=== PATIENT | female | born 1965 | race Caucasian/White ===

== ENCOUNTER 2024-09-19 17:54 | Emergency (ER) | payer OTHER, SELFPAY ==
[2024-09-19 17:58] VITALS: BP 161/91
[2024-09-19 18:01] VITALS: BP 132/75
[2024-09-19 18:17] LABS: Hematocrit 39.7 % (37.0-47.0); Hemoglobin 13.7 g/dL (12.0-16.0); Mean Corp Hgb Conc. 34.5 g/dL (33.0-37.0); Mean Corpuscular Hgb 31.9 pg (27.0-31.0); Mean Corpuscular Volume 92.5 fL (81.0-99.0); Mean Platelet Volume 8.8 fL (7.4-10.4); Platelet Count 175 10^3/uL (130-400); Red Blood Cell Count 4.29 10^6/uL (4.20-5.40); Red Cell Dist. Width 12.6 % (11.5-14.5); White Blood Cell Count 2.7 10^3/uL (4.8-10.8)
[2024-09-19 18:25] LABS: ALT (SGPT) 32 U/L (0-35); AST (SGOT) 37 U/L (14-36); Albumin 4.9 g/dl (3.5-5.0); Alkaline Phosphatase 59 U/L (38-126); Blood Urea Nitrogen 12 mg/dl (7-17); Calcium 9.3 mg/dl (8.4-10.2); Carbon Dioxide 30 mmol/L (22-30); Chloride 96 mmol/L (98-107); Glucose 101 mg/dl (70-99); Potassium 4.8 mmol/L (3.5-5.1); Sodium 132 mmol/L (135-145); Total Bilirubin 0.9 mg/dl (0.2-1.3); Total Protein 7.3 g/dl (6.3-8.2); eGFR > 60.00
[2024-09-19 18:27] LABS: COVID-19 Antigen Negative (Negative)
[2024-09-19 19:13] LABS: % Eosinophils 1.5 % (0-6); % Lymphocytes 59.3 % (20.5-51.1); % Monocytes 11.9 % (1.7-9.3); % Neutrophils 27.3 % (42.2-75.2); Absolute Lymphocytes 1.6 10^3/uL (1.2-3.4); Absolute Monocytes 0.3 10^3/uL (0.1-0.6); Nucleated Red Blood Cells % 0 %
[2024-09-19 19:16] LABS: Absolute Neutrophils 0.7 10^3/uL (1.4-6.5)
--- NOTE | 2024-09-19 19:34 | ED.GENMED ---
History of Present Illness
General
Chief Complaint: Abnormal Lab Value
Source: patient and spouse
Exam Limitations: none
Time Seen by Provider: 09/19/24 19:07
Nursing documentation reviewed up to this point in time: agreed with
History of Present Illness
History of Present Illness:
59-year female referred from the urgent care due to low white blood cell count tells me for a 4 to 5 days she has had some backache fever chills thought she had the flu no nausea or vomiting no dysuria frequency no hematuria no hemoptysis, tested
negative for the flu and COVID had a low white blood cell count sent here for evaluation
Past History
Past History
ED Past Medical History: None
ED Past Surgical History: Gynecological and Orthopedic
Social History
Tobacco: Non-smoker
Alcohol: Occasional
Drug: None
Personal:
Living: with family
Employment: Employed
Review of Systems
Review of Systems
All Other Systems: Not applicable
Constitutional: Reports fever, fatigue and chills
EENT: Reports no symptoms
Respiratory: Reports no symptoms
Cardiac: Reports no symptoms
ABD/GI: Reports no symptoms
: Reports no symptoms
Musculoskeletal: Reports back pain
Skin: Reports no symptoms
Neurological: Reports weakness
Endocrine: Reports no symptoms
Hematologic/Lymphatic: Reports no symptoms; Denies bleeding or bruising
Psychiatric: Reports no symptoms
Phy Exam
Physical Exam
Physical Exam:
Physical Exam
General: no apparent distress, not acutely ill
Neck: No jaundice
Heart: s1/s2 regular rate and rhythm, no murmur. equal radial pulses.
Lungs: no acute respiratory distress. clear bilaterally
Abdomen: Nontender
Neuro: alert and oriented. no focal neurological deficits
Skin: no rash
Psychiatric: well kept. interactive and cooperative
Extremities: no edema. No calf pain
Course
Orders/Labs/Results
Orders:
Orders
09/19/24 18:05
CMP [Comprehensive Metabolic Panel] Urgent
COVID-19 Antigen Urgent
Source: Nasal Swab
Complete Blood Count/With Diff Urgent
Influenza A+B Rapid Molecular Urgent
KEYANA Source: Nasal Swab
Specimen Description:
09/19/24 19:07
CR Chest - 2 Views Urgent
Comment:
Reason For Exam: low wbc
09/19/24 19:27
Urinalysis Reflex To Culture Urgent
Date Specimen was Collected: 09/19/24
Time Specimen was Collected: 19:20
Urine Microscopic Reflex Cult Urgent
Urine Culture Urgent
KEYANA Source: U
Specimen Description:
Date Specimen was Collected: 09/19/24
Time Specimen was Collected: 19:20
Comment: ADD ON BY ED
09/19/24 19:39
Procalcitonin Urgent
PCT Algorithmm Indication: Sepsis
Blood Culture Q30M
KEYANA Source: Blood/Venous
Specimen Description:
09/19/24 19:41
Lactic Acid Urgent
Blood Culture Q30M
KEYANA Source: Blood/Venous
Specimen Description:
09/19/24 20:59
Add On- LAB Urgent
Tests Added?: urine culture
09/19/24 21:05
Amoxicillin [Amoxil] 500 mg PO NOW STA
Abnormal Lab Results
09/19/24 09/19/24
18:05 19:27
WBC 2.7 L 10^3/uL
(4.8-10.8)
MCH 31.9 H pg
(27.0-31.0)
Absolute Neuts (auto) 0.7 L* 10^3/uL
(1.4-6.5)
Neutrophils % 27.3 L %
(42.2-75.2)
Lymphocytes % 59.3 H %
(20.5-51.1)
Monocytes % 11.9 H %
(1.7-9.3)
Sodium 132 L mmol/L
(135-145)
Chloride 96 L mmol/L
(98-107)
Glucose 101 H mg/dl
(70-99)
AST 37 H U/L
(14-36)
Ur Occult Blood Reflex 3+ A
(Negative)
Urine RBC 3-6 A /HPF
(0-2)
Urine Bacteria (Reflex) Few A
(Negative)
09/19/24 18:05
09/19/24 18:05
Vital Signs
Initial and Last Documented VS:
Initial Vital Signs
Temp Pulse Resp BP Pulse Ox
99.1 F 73 18 161/91 98
09/19/24 17:58 09/19/24 17:58 09/19/24 17:58 09/19/24 17:58 09/19/24 17:58
Last Documented Vital Signs
Temp Pulse Resp BP Pulse Ox
99.1 F 73 16 127/68 100
09/19/24 17:58 09/19/24 20:17 09/19/24 20:17 09/19/24 20:17 09/19/24 20:17
MDM/Problems Addressed
Differential Diagnosis Includes:
Viral syndrome pneumonia UTI conceivably bacteremia relative neutropenia
MDM/Problems Addressed:
Fatigue fever chills low white count
Chronic conditions affecting care:
Alcohol
Acute Exacerbation and/or Progression of Chronic Illness:
Alcohol
*Radiology
Radiology exam reviewed: preliminary read by ED provider
*Pulse Oximetry
Patient hypoxic: no
*Critical Care Note
Total Time (30-74mins, 75-104mins- exclusive of procedures): Not Applicable
Update Note
Update Note:
Update patient well-appearing, afebrile here procalcitonin noted blood cultures are pending chest x-ray noted formal report pending
Will help facilitate a new PCP
Consideration for short course of antibiotics pending cultures of this may all be viral
ED Attending Note
-
Portions of this chart may have been created with voice recognition software.� Occasional wrong word or��sound alike� substitutions may have occurred due to the inherent limitations of voice recognition software.
Discharge Plan
Departure
Patient Disposition: Home (Routine Discharge)
Date of Disposition: 09/19/24
Time of Disposition: 21:05
Patient with high blood pressure during this ER visit?: No
Condition: Good
Discharge Problem:
Viral syndrome
Instructions: Neutropenia, Neutrophil count
Prescriptions:
New
amoxicillin 500 mg tablet
500 mg PO Q8H Qty: 14 0RF
No Action
Premarin
1 tab PO DAILY
Patient Comments:
pt stopped taking approx 1 week ago
mlxqddzjsx-ddtdgulekqolb-ghah [Fioricet] 1 TAB tablet
1 tab PO PRN
ondansetron [Zofran ODT] 8 MG tablet,disintegrating
8 mg PO TIDPRN PRN (Reason: vomiting) Qty: 15 0RF
hydrocodone-acetaminophen [Vicodin] 1 EACH tablet
1 ea PO Q6H PRN (Reason: pain) Qty: 7 0RF
hydrocodone-acetaminophen 1 TABLET tablet
1 tab PO Q4HPRN PRN (Reason: severe pain) Qty: 20 0RF
lorazepam [Ativan] 0.5 mg tablet
0.5 mg PO BID PRN (Reason: alcohol withdrawal) Qty: 10 0RF
Referrals:
Neal Calle, DO [[facility]] - Next open appointment
UNKNOWN - PT DOES,NOT KNOW [Family Provider] -
Interventions
Interventions:
*Risk Screen - Suicide Last Done: 09/19/24 17:58
*General Assessment Last Done: 09/19/24 17:58
*Neglect/Abuse Screening Last Done: 09/19/24 17:58
*ED COVID-19 Vaccine History Last Done: 09/19/24 17:58
Discharge Date and Time
Print Language: ISRAELI
[2024-09-19 19:36] LABS: Urine Albumin Negative (Neg - Trace); Urine Bilirubin Negative (Negative); Urine Character Clear (Clear); Urine Color Yellow; Urine Glucose Negative (Negative); Urine Ketone Negative (Negative); Urine Leukocyte Negative (Negative); Urine Nitrite Negative (Negative); Urine Occult Blood 3+ (Negative); Urine Urobilinogen Negative (Neg - 1+); Urine pH 6.5 (5.0-9.0)
[2024-09-19 19:50] LABS: Urine Bacteria Few (Negative); Urine White Cell 0-2 /HPF (0-5)
[2024-09-19 20:14] LABS: Procalcitonin < 0.05 ng/ml (0.0-0.25)
[2024-09-19 20:17] VITALS: BP 127/68
[2024-09-19] MEDS: AMOXIL 500 MG PO (21:11)
== END 2024-09-19 21:32 | disposition home or self-care (01) ==
LOC: EMR 17:54
PROVIDERS: Emergency Medicine; EMERGENCY PHYSICIAN Emergency Medicine
DX: B34.9 Viral infection, unspecified (principal); F10.90 Alcohol use, unspecified, uncomplicated; Z11.52 Encounter for screening for COVID-19
CPT/HCPCS: 99284; 71046; 80053; 81003; 81015; 83605; 84145; 85025; 87040; 87086; 87502; 87811

== ENCOUNTER → 2025-01-09 06:24 | Outpatient (REF) | payer OTHER, SELFPAY | LOC: HWWDC 06:24 | PROVIDERS: ATTENDING PHYSICIAN Family Medicine | DX: Z12.31 Encounter for screening mammogram for malignant neoplasm of breast (principal) | CPT/HCPCS: 77063; 77067 ==